=== PATIENT | male | born 1975 | race Caucasian/White ===

== ENCOUNTER 2020-05-04 13:18 | Emergency (ER) | payer BC ==
[2020-05-04] MEDS ORDERED: IBUPROFEN 400 MG TAB ONE (14:09)
[2020-05-04] MEDS ORDERED: ACETAMINOPHEN 500 MG TAB ONE (18:09)
--- NOTE | 2020-05-04 19:03 | ER ---
Nurse's Notes [facility] Name: John Crawford Age: 45 yrs Sex: Male : 1975 Arrival Date: 05/04/2020 Time: 13:19 Bed 8 Private MD: Diagnosis: Coronavirus infection, unspecified;Fever, unspecified Presentation: 05/04 13:43 Chief complaint: Patient states: Tested Covid+ 05/01/2020. S/S started 04/28/2020. Came ca1 in today for high fever. Temp [employer] 105.8F. Tylenol taken at 0900. Coronavirus screen: Client reports previous positive COVID test result. Date of collection: May 01, 2020 Staff notified of need for isolation. Ebola Screen: Patient negative for fever greater than or equal to 101.5 degrees Fahrenheit, and additional compatible Ebola Virus Disease symptoms Patient denies exposure to infectious person. Patient denies travel to an Ebola-affected area in the 21 days before illness onset. No symptoms or risks identified at this time. Initial Sepsis Screen: Does the patient meet any 2 criteria? No. Patient's initial sepsis screen is negative. Does the patient have a suspected source of infection? No. Patient's initial sepsis screen is negative. Risk Assessment: Do you want to hurt yourself or someone else? Patient reports no desire to harm self or others. Onset of symptoms was May 04, 2020. 13:43 Method Of Arrival: Ambulatory ca1 13:43 Acuity: MIRELA 3 ca1 Triage Assessment: 17:13 General: Appears distressed, uncomfortable, Behavior is cooperative, appropriate for bp age, anxious. Pain: Denies pain. EENT: No deficits noted. Neuro: No deficits noted. Cardiovascular: No deficits noted. Respiratory: No deficits noted. GI: No signs and/or symptoms were reported involving the gastrointestinal system. : No signs and/or symptoms were reported regarding the genitourinary system. Derm: No deficits noted. Musculoskeletal: No deficits noted. Historical: - Allergies: 13:46 No Known Allergies; ca1 - Home Meds: 13:46 None [Active]; ca1 - PMHx: 13:46 None; ca1 - PSHx: 13:46 None; ca1 - Immunization history:: Flu vaccine is up to date. - Social history:: Smoking status: Patient denies any tobacco usage or history of. Screenin:04 Abuse screen: Denies threats or abuse. Nutritional screening: No deficits noted. jd3 Tuberculosis screening: No symptoms or risk factors identified. Fall Risk Ambulatory Aid- None/Bed Rest/Nurse Assist (0 pts). Gait- Normal/Bed Rest/Wheelchair (0 pts) Mental Status- Oriented to own ability (0 pts). Total Tomlin Fall Scale indicates No Risk (0-24 pts). Assessment: 18:03 Reassessment: Patient states feeling better. General: Appears in no apparent distress. jd3 comfortable, Behavior is calm, cooperative, appropriate for age, Reports fever for 0-12 hours. Pain: Denies pain. Neuro: Level of Consciousness is awake, alert, obeys commands, Oriented to person, place, time, situation. Cardiovascular: Denies chest pain, Heart tones S1 S2 present Capillary refill < 3 seconds Patient's skin is warm and dry. Respiratory: Airway is patent Respiratory effort is even, unlabored, Respiratory pattern is regular, symmetrical, Breath sounds are clear bilaterally. Denies cough, shortness of breath. GI: No signs and/or symptoms were reported involving the gastrointestinal system. : No signs and/or symptoms were reported regarding the genitourinary system. EENT: No signs and/or symptoms were reported regarding the EENT system. Derm: Skin is intact, Skin is dry, Skin is normal, Skin temperature is warm. Musculoskeletal: Circulation, motion, and sensation intact. Range of motion: intact in all extremities. 19:13 Reassessment: Patient appears in no apparent distress at this time. Patient and/or jd3 family updated on plan of care and expected duration. Pain level reassessed. Patient is alert, oriented x 3, equal unlabored respirations, skin warm/dry/pink. even and steady gait upon discharge. Patient states feeling better. Vital Signs: 13:43 BP 94 / 71; Pulse 90; Resp 20 S; Temp 102.9(O); Pulse Ox 96% on R/A; Weight 113.4 kg ca1 (R); Height 6 ft. 5 in. (195.58 cm) (R); 18:03 BP 111 / 78; Pulse 75; Resp 16 S; Temp 98.4(O); Pulse Ox 97% on R/A; jd3 19:08 BP 102 / 80; Pulse 70; Resp 18; Pulse Ox 97% ; ea 13:43 Body Mass Index 29.65 (113.40 kg, 195.58 cm) ca1 ED Course: 13:19 Patient arrived in ED. as 13:46 Triage completed. ca1 13:46 Arm band placed on right wrist. ca1 17:11 Donell Arzate PA is PHCP. cp 17:11 Roly Sosa MD is Attending Physician. cp 17:12 Tyree Richter, RN is Primary Nurse. bp 18:04 Patient has correct armband on for positive identification. Bed in low position. Call jd3 light in reach. Side rails up X 1. Pulse ox on. NIBP on. 19:08 No provider procedures requiring assistance completed. ea 19:09 Patient did not have IV access during this emergency room visit. ea Administered Medications: 13:54 Drug: Motrin 800 mg Route: PO; ca1 19:09 Follow up: Response: No adverse reaction ea 18:02 Drug: Tylenol 1000 mg Route: PO; jd3 19:09 Follow up: Response: No adverse reaction ea Outcome: 19:03 Discharge ordered by MD. cp 19:13 Discharged to home ambulatory, with family. jd3 19:13 Condition: stable 19:13 Discharge instructions given to patient, Instructed on discharge instructions, follow up and referral plans. medication usage, Demonstrated understanding of instructions, follow-up care, medications, Prescriptions given X 4. 19:14 Patient left the ED. jd3 Signatures: Jessy Watson as Donell Arzate PA PA cp Antunez, Elena, RN RN ea Davies, Jonathon, RN RN jTyree Zapata, Laurel Romero RN, RN RN ca1
--- NOTE | 2020-05-04 19:03 | EDPHYS ---
Physician Documentation [facility] Name: John Crawford Age: 45 yrs Sex: Male : 1975 Arrival Date: 05/04/2020 Time: 13:19 Bed 8 Private MD: ED Physician Roly Sosa HPI: 05/04 17:41 This 45 yrs old Male presents to ER via Ambulatory with complaints of Fever - cp covid+. 17:41 The patient reports fever, that was measured at 105.3 degrees Fahrenheit. Onset: The cp symptoms/episode began/occurred today. 17:41 Associated signs and symptoms: Pertinent negatives: abdominal pain, altered mental cp status, chest pain, cough, diarrhea, headache, skin rash, shortness of breath, vomiting. Severity of symptoms: in the emergency department the symptoms have improved mildly. 17:41 Patient reports testing positive for COVID-19 05/01/2020. Started having mild symptoms cp 04/28/2020. Denies persistent cough, shortness of breath, chest pain, headache. Historical: - Allergies: 13:46 No Known Allergies; ca1 - Home Meds: 13:46 None [Active]; ca1 - PMHx: 13:46 None; ca1 - PSHx: 13:46 None; ca1 - Immunization history:: Flu vaccine is up to date. - Social history:: Smoking status: Patient denies any tobacco usage or history of. ROS: 17:50 Constitutional: Positive for fever, Negative for body aches, chills, poor PO intake. cp 17:50 Eyes: Negative for injury, pain, redness, and discharge. cp 17:50 ENT: Negative for ear pain, sore throat, difficulty swallowing, difficulty handling secretions. 17:50 Neck: Negative for pain with movement, pain at rest, stiffness. 17:50 Cardiovascular: Negative for chest pain, palpitations. 17:50 Respiratory: Negative for shortness of breath, wheezing. 17:50 Abdomen/GI: Negative for abdominal pain, nausea, vomiting, and diarrhea, constipation. 17:50 Back: Negative for radiated pain. 17:50 : Negative for urinary symptoms. 17:50 Skin: Negative for rash. 17:50 Neuro: Negative for altered mental status, headache, weakness. 17:50 All other systems are negative. Exam: 17:55 Head/Face: Normocephalic, atraumatic. cp 17:55 Constitutional: The patient appears in no acute distress, alert, awake, comfortable, non-diaphoretic, non-toxic, well developed, well nourished. 17:55 Eyes: Periorbital structures: appear normal, Conjunctiva: normal, no exudate, no injection, Sclera: no appreciated abnormality, Lids and lashes: appear normal, bilaterally. 17:55 ENT: External ear(s): are unremarkable, Nose: is normal, Mouth: Lips: moist, Oral mucosa: pink and intact, moist, Posterior pharynx: is normal, airway is patent, no erythema, no exudate. 17:55 Neck: ROM/movement: is normal, is supple, without pain, no range of motions limitations, no meningismus, no nuchal rigidity. 17:55 Chest/axilla: Inspection: normal, Palpation: is normal, no crepitus, no tenderness. 17:55 Cardiovascular: Rate: normal, Rhythm: regular. 17:55 Respiratory: the patient does not display signs of respiratory distress, Respirations: normal, no use of accessory muscles, no retractions, labored breathing, is not present, Breath sounds: are clear throughout, no decreased breath sounds, no stridor, no wheezing. 17:55 Abdomen/GI: Inspection: abdomen appears normal, Bowel sounds: active, all quadrants, Palpation: abdomen is soft and non-tender, in all quadrants. 17:55 Back: CVA tenderness, is absent. 17:55 Skin: no rash present. 17:55 Neuro: Orientation: to person, place \T\ time. Mentation: is normal, Cerebellar function: is grossly normal, Motor: moves all fours, strength is normal, Sensation: is normal. Vital Signs: 13:43 BP 94 / 71; Pulse 90; Resp 20 S; Temp 102.9(O); Pulse Ox 96% on R/A; Weight 113.4 kg ca1 (R); Height 6 ft. 5 in. (195.58 cm) (R); 18:03 BP 111 / 78; Pulse 75; Resp 16 S; Temp 98.4(O); Pulse Ox 97% on R/A; jd3 19:08 BP 102 / 80; Pulse 70; Resp 18; Pulse Ox 97% ; ea 13:43 Body Mass Index 29.65 (113.40 kg, 195.58 cm) ca1 MDM: 17:12 Patient medically screened. cp 18:00 Differential diagnosis: bronchitis, pneumonia gastroenteritis, meningitis, sepsis. cp 19:02 Data reviewed: vital signs, nurses notes, radiologic studies, plain films, and as a cp result, I will discharge patient. 19:02 Counseling: I had a detailed discussion with the patient and/or guardian regarding: the cp historical points, exam findings, and any diagnostic results supporting the discharge/admit diagnosis, radiology results, to return to the emergency department if symptoms worsen or persist or if there are any questions or concerns that arise at home. ED course: VSS. Patient appears non-toxic and no signs of respiratory distress. Will discharge to home for continued monitoring. 05/04 17:39 Order name: XRAY Chest (1 view) cp 05/04 19:05 Order name: RAD EDMS Administered Medications: 13:54 Drug: Motrin 800 mg Route: PO; ca1 19:09 Follow up: Response: No adverse reaction ea 18:02 Drug: Tylenol 1000 mg Route: PO; jd3 19:09 Follow up: Response: No adverse reaction ea Disposition: 05/05 07:04 Co-signature as Attending Physician, Roly Sosa MD I agree with the assessment and kdr plan of care. Disposition: 05/04/20 19:03 Discharged to Home. Impression: Coronavirus infection, unspecified, Fever, unspecified. - Condition is Stable. - Discharge Instructions: Fever, Adult, COVID-19. - Prescriptions for ivermectin 3 mg Oral tablet - take 7 tablet by ORAL route every other day x2 dose; 14 tablet. Zithromax Z- Jaspreet 250 mg Oral Tablet - take 1 tablet by ORAL route as directed for 5 days Day 1 - take two (2) tablets one time. Day 2, 3, 4 , 5 take one (1) tablet once daily.; 6 tablet. Prednisone 20 mg Oral Tablet - take 1 tablet by ORAL route every 12 hours for 5 days; 10 tablet. Albuterol Sulfate 90 mcg/actuation - inhale 1-2 puff by INHALATION route every 4-6 hours; 1 Inhaler. - Medication Reconciliation Form, Thank You Letter, Antibiotic Education, Prescription Opioid Use form. - Follow up: Private Physician; When: 2 - 3 days; Reason: Worsening of condition. - Problem is new. - Symptoms have improved. Signatures: Dispatcher [employer] EDMS Roly Sosa MD MD kdr Page, Corey, PA PA cp Davies, Jonathon, RN RN jrae Goins, ARIADNA Barragan RN, Elena RN ea Corrections: (The following items were deleted from the chart) 05/04 19:14 19:03 05/04/2020 19:03 Discharged to Home. Impression: Coronavirus infection, jd3 unspecified; Fever, unspecified. Condition is Stable. Forms are Medication Reconciliation Form, Thank You Letter, Antibiotic Education, Prescription Opioid Use. Follow up: Private Physician; When: 2 - 3 days; Reason: Worsening of condition. Problem is new. Symptoms have improved. cp 05/05 18:05/04 17:45 Constitutional: The patient appears in no acute distress, alert, awake, cp comfortable, non-diaphoretic, non-toxic, well developed, well nourished, cp 05/05 17:05/04 17:45 Head/Face: Normocephalic, atraumatic. cp cp 05/05 18:05/04 17:45 Eyes: Periorbital structures: appear normal, Conjunctiva: normal, no cp exudate, no injection, Sclera: no appreciated abnormality, Lids and lashes: appear normal, bilaterally, cp 05/05 18:05/04 17:45 ENT: External ear(s): are unremarkable, Nose: is normal, Mouth: Lips: cp moist, Oral mucosa: pink and intact, moist, Posterior pharynx: is normal, airway is patent, no erythema, no exudate, cp 05/05 18:05/04 17:45 Neck: ROM/movement: is normal, is supple, without pain, no range of motions cp limitations, no meningismus, no nuchal rigidity, cp 05/05 17:05/04 17:45 Chest/axilla: Inspection: normal, Palpation: is normal, no crepitus, no cp tenderness, cp 05/05 18:05/04 17:45 Cardiovascular: Rate: normal, Rhythm: regular, cp cp 05/05 18:05/04 17:45 Respiratory: the patient does not display signs of respiratory distress, cp Respirations: normal, no use of accessory muscles, no retractions, labored breathing, is not present, Breath sounds: are clear throughout, no decreased breath sounds, no stridor, no wheezing, cp 05/05 18:46 05/04 17:45 Abdomen/GI: Inspection: abdomen appears normal, Bowel sounds: active, all cp quadrants, Palpation: abdomen is soft and non-tender, in all quadrants, cp 05/05 18:05/04 17:45 Back: CVA tenderness, is absent, cp cp 05/05 18:46 05/04 17:45 Neuro: Orientation: to person, place \T\ time. Mentation: is normal, cp Cerebellar function: is grossly normal, Motor: moves all fours, strength is normal, Sensation: is normal, cp 05/05 18:46 05/04 17:45 Skin: no rash present. cp cp
--- NOTE | 2020-05-04 19:04 | RAD REPORT ---
EXAM DESCRIPTION: RAD - Chest Single View - 05/04/2020 6:56 pm CLINICAL HISTORY: COVID-19 positive Chest pain. COMPARISON: Chest Single View dated 11/13/2019; Chest Pa And Lat (2 Views) dated 12/15/2018; Chest Sing le View dated 06/09/2018; Chest Single View dated 05/23/2017No comparisons FINDINGS: Portable technique limits examination quality. Small linear opacities in the inferior left lung probably represent atelectasis or early infiltrate. The heart is normal in size. No displaced fractures.
[2020-05-04 22:38] VITALS: TEMP 98.4; O2SAT 97
[2020-05-04 22:40] VITALS: BP 102/80
== END 2020-05-04 19:14 | disposition home or self-care (01) ==
LOC: ER 13:18
DX: U07.1 COVID-19 (principal)
CPT/HCPCS: 71045; 99283